=== PATIENT | female | born 1960 | race Caucasian/White ===

== ENCOUNTER 2021-01-18 22:47 | Emergency (ER) | payer OTHER ==
[2021-01-18 22:58] LABS: BASOPHIL 0.9 % (0-2); HGB 13.2 g/dl (12.5-16.0); LYMPHOCYTE 41.7 % (15-48); MCHC 31.4 g/dL (32.0-36.0); MCV 92.3 fL (78.0-100.0); MPV 9.2 fL (6.0-9.5); NEUTROPHIL 41.3 % (41-80); NRBC 0; PLT 337 K/uL (150-400); RBC 4.55 M/uL (4.20-5.40); RDW 13.5 % (11.5-14.0); WBC 9.2 K/uL (4.0-10.5)
[2021-01-18 23:07] LABS: INR 1.04 (0.9-1.2); PROTHROMBIN TIME 12.9 SECONDS (11.4-13.6); PTT 27.4 SECONDS (22.2-34.7)
[2021-01-18 23:09] LABS: D-DIMER 0.4 ug/mLFEU (0.00-0.41)
[2021-01-18 23:15] LABS: ALBUMIN 3.8 g/dL (3.4-5.0); BILIRUBIN - TOTAL 0.2 mg/dL (0.2-1.0); BUN/CREAT RATIO (CALC) 18.6 RATIO; CREATININE 0.86 mg/dL (0.51-0.95); GLOBULIN (CALCULATION) 4.3 g/dL; POTASSIUM 3.6 mmol/L (3.5-5.1); TOTAL PROTEIN 8.1 g/dL (6.4-8.2)
[2021-01-18 23:21] LABS: PRO-BNP 57 pg/mL (<125)
== END 2021-01-19 03:31 | disposition home or self-care (01) ==
LOC: FER 22:47
PROVIDERS: Emergency Medicine
DX: J98.01 Acute bronchospasm (principal); R07.89 Other chest pain; R51.9 Headache, unspecified; R60.0 Localized edema; I10 Essential (primary) hypertension; E66.9 Obesity, unspecified; Z86.718 Personal history of other venous thrombosis and embolism; Z86.711 Personal history of pulmonary embolism; Z98.890 Other specified postprocedural states
CPT/HCPCS: 36415; 36600; 70450; 71045; 80053; 82803; 83880; 84484; 85025; 85379; 85610; 85730; 93005; J2405; Q9967